=== PATIENT | male | born 1990 | race Two or more races ===

== ENCOUNTER 2020-03-02 15:09 | Outpatient (CLI) | payer OTHER | END 2020-03-02 18:00 | disposition home or self-care (01) | LOC: LAB 15:09 | DX: Z20.828 Contact with and (suspected) exposure to other viral communicable diseases (principal) ==

== ENCOUNTER 2020-03-05 15:03 | Outpatient (CLI) | payer OTHER | END 2020-03-05 18:00 | disposition home or self-care (01) | LOC: LAB 15:03 | DX: R07.0 Pain in throat (principal) ==